=== PATIENT | female | born 1940 | race Caucasian/White ===

== ENCOUNTER 2017-04-13 06:31 | Inpatient (IN) | payer OTHER, MEDICAID ==
[~2017-04-13] VITALS: Ht 157.5 cm; Wt 73.8 kg
[2017-04-13 08:17] LABS: Basophils # (auto) 0 uL; Basophils % (auto) 0.2 % (0.0-2.0); Eosinophils # (auto) 0 uL; Hematocrit 41.7 % (36.0-46.0); Hemoglobin 14.2 g/dL (12.2-16.2); Lymphocytes # (auto) 0.5 uL; Mean Corpuscular Hemoglobin 31.9 pg (28.0-32.0); Mean Corpuscular Hgb Conc. 33.9 g/dL (32.0-36.0); Monocytes # (auto) 0.7 uL; Monocytes % (auto) 6.6 % (0.0-12.0); Neutrophils # (auto) 9.7 uL; Neutrophils % (auto) 88.2 % (37.0-80.0); Platelet Count (auto) 184 10^3/uL (140-450); Red Blood Cells 4.44 10^6/uL (4.0-5.20); Red Cell Distribution Width 12.9 % (11.8-14.3)
[2017-04-13 08:45] LABS: Albumin 2.5 g/dL (3.4-5.0); Bilirubin, Total 0.6 mg/dL (0.2-1.0); Calcium 7.7 mg/dL (8.5-10.1); Magnesium 1.7 mg/dL (1.6-2.6); Total Protein 5.9 g/dL (6.4-8.2)
[2017-04-13 08:57] LABS: Potassium 2.6 mmol/L (3.5-5.1)
[2017-04-13] MEDS ORDERED: cefTRIAXone 1GM/10ml IVPUSH 10 ML IV ONE (10:00)
[2017-04-13] MEDS ORDERED: ACETAMINOPHEN 325 MG TAB PO ONE (10:00)
[2017-04-13] MEDS ORDERED: ENOXAPARIN SOD 80 MG/0.8ML SYRINGE SC ONE (10:00)
[2017-04-13] MEDS ORDERED: FUROSEMIDE 40 MG/4 ML VIAL IV ONE (10:00)
[2017-04-13] MEDS ORDERED: TEMAZEPAM 15 MG CAP PO PRN (10:30)
[2017-04-13] MEDS ORDERED: MORPHINE SULF INJ 2 MG/ML SYRINGE 1ML IV PRN ×2 (10:30)
[2017-04-13] MEDS ORDERED: DEXTROSE (50%) 50ML SYRG IV PRN (10:30)
[2017-04-13] MEDS ORDERED: LORazepam 0.5 MG TAB PO PRN (10:30)
[2017-04-13] MEDS ORDERED: NITROGLYCERIN 0.4 MG SL TAB SL PRN (10:30)
[2017-04-13] MEDS ORDERED: LACTULOSE 20Gm/30ML SOLN PO PRN (10:30)
[2017-04-13 11:10] LABS: Urine Bacteria NONE SEEN /hpf (None Seen); Urine Blood 1+ /uL (Negative); Urine Specific Gravity 1.014 (1.001-1.035); Urine WBC 1 /hpf (0 - 5)
[2017-04-13 11:11] LABS: INR 1.03 (0.9-1.15); Partial Thromboplastin Time 26.7 sec (22.64-33.71); Prothrombin Time 11.2 sec (9.37-12.3)
[2017-04-13] MEDS: POTASSIUM CHL 20MEQ/50ML 50 ML IV SCH ×3 (11:12→15:01)
[2017-04-13 11:13] LABS: Alcohol, Urine < 3.0 mg/dL (0-5); Amphetamine Screen, Urine NEGATIVE (NEGATIVE); Barbiturate Scree,Urine NEGATIVE (NEGATIVE); Benzodiazephine Screen, Urine NEGATIVE (NEGATIVE); Cannabinoid Screen, Urine NEGATIVE (NEGATIVE); Cocaine Screen, Urine NEGATIVE (NEGATIVE); Opiate Scree,Urine NEGATIVE (NEGATIVE); Phencyclidine Screen, Urine NEGATIVE (NEGATIVE)
[2017-04-13] MEDS: ASPirin 81 mg TAB PO SCH (11:15)
[2017-04-13] MEDS: CARVEDILOL 3.125 MG TAB PO SCH ×2 (11:15→22:45)
[2017-04-13] MEDS: ENALAPRIL MALEATE 2.5 MG TAB PO SCH (11:16)
[2017-04-13] MEDS: NITROGLYCERIN 0.2MG/HR TOPICAL PATCH TD SCH (11:16)
[2017-04-13] MEDS: PANTOPRAZOLE 40 MG TAB PO SCH (11:26)
[2017-04-13 13:04] LABS: Folate (Folic Acid) 23.01 ng/mL (5.38-24)
[2017-04-13] MEDS: ACCU-CHEK COMFORT CURVE STRIP VI SCH ×2 (13:39→19:02)
[2017-04-13] MEDS: SODIUM CHLOR 0.9% PF (SALINE LOCK) 10ML VIAL IV SCH ×2 (14:01→22:00)
[2017-04-13] MEDS ORDERED: IOHEXOL 350 MG/ML 100ML IJ ONE (16:48)
[2017-04-13] MEDS ORDERED: SODIUM CHLORIDE 0.9% 1,000 ML IV SCH (17:15)
[2017-04-13] MEDS: HYDROcodone-ACET 5/325MG TAB PO PRN (17:39)
[2017-04-13] MEDS: ACETAMINOPHEN 500 MG TAB PO PRN (19:44)
[2017-04-13] MEDS ORDERED: THROAT LOZENGES(CEPASTAT) MT PRN (19:45)
[2017-04-13] MEDS ORDERED: ALBUTEROL SULF 2.5 MG/0.5ML(0.5%) NEB SOLN NEB PRN (21:00)
[2017-04-13] MEDS ORDERED: VANCOMYCIN PER PHARMACY 0 MG IV SCH (21:00)
[2017-04-13] MEDS ORDERED: PIPERACILLIN-TAZOB 3.375GM 50 ML IV ONE (21:00)
[2017-04-13] MEDS ORDERED: POTASSIUM CHL 20MEQ/50ML 50 ML IV SCH (21:00)
[2017-04-13] MEDS ORDERED: AZITHROMYCIN 500MG/ 250ML 250 ML IV ONE (21:00)
[2017-04-13] MEDS ORDERED: POTASSIUM CHL 20 Meq TABLET PO ONE (21:00)
[2017-04-13] MEDS ORDERED: SOD CHL 0.9%/ KCL 40MEQ 1,000 ML IV SCH (21:00)
[2017-04-13] MEDS ORDERED: VANCOMYCIN 1GM/250ML 250 ML IV ONE (21:00)
[2017-04-13] MEDS ORDERED: OSELTAMIVIR 75 MG CAP PO ONE (21:00)
[2017-04-13] MEDS ORDERED: ETOMIDATE (2MG/ML) 20ML VIAL IV ONE ×2 (21:17→21:45)
[2017-04-13] MEDS: ATORVASTATIN 20 MG TAB PO SCH (22:45)
[2017-04-13] MEDS: ENOXAPARIN SOD 80 MG/0.8ML SYRINGE SC SCH (22:46)
[2017-04-14] MEDS: ALBUTEROL SULF 2.5 MG/0.5ML(0.5%) NEB SOLN NEB SCH ×4 (01:00→18:46)
[2017-04-14] MEDS: IPRATROPIUM BROM 0.5 MG/2.5ML INH SOL NEB SCH ×4 (01:00→18:46)
[2017-04-14 01:17] LABS: Albumin 2.3 g/dL (3.4-5.0); BUN/Creatinine Ratio 11.6; Calcium 7.5 mg/dL (8.5-10.1); Potassium 3.5 mmol/L (3.5-5.1)
[2017-04-14 01:20] LABS: Bilirubin, Total 0.8 mg/dL (0.2-1.0); Total Protein 5.9 g/dL (6.4-8.2)
[2017-04-14] MEDS ORDERED: IBUPROFEN 400 MG TAB PO ONE ×2 (01:45→02:05)
[2017-04-14] MEDS: PIPERACILLIN-TAZOB 3.375GM 50 ML IV SCH ×2 (01:47→06:47)
[2017-04-14] MEDS: PROMETHAZINE HCL 25 MG/ML 1ML IV PRN (01:56)
[2017-04-14] MEDS: ACETAMINOPHEN 500 MG TAB PO PRN (02:21)
[2017-04-14 04:25] VITALS: BP 147/73
[2017-04-14 05:29] LABS: Hematocrit 36.9 % (36.0-46.0); Hemoglobin 12.6 g/dL (12.2-16.2); Mean Corpuscular Hemoglobin 32.5 pg (28.0-32.0); Mean Corpuscular Hgb Conc. 34.1 g/dL (32.0-36.0); Mean Corpuscular Volume 95.3 fL (80.0-100.0); Platelet Count (auto) 150 10^3/uL (140-450); Red Blood Cells 3.87 10^6/uL (4.0-5.20); Red Cell Distribution Width 13.5 % (11.8-14.3); White Blood Cell 11.4 10^3/uL (4.4-10.8)
[2017-04-14 05:55] LABS: Albumin 2.1 g/dL (3.4-5.0); BUN/Creatinine Ratio 14.3; Bilirubin, Total 0.9 mg/dL (0.2-1.0); Calcium 7.7 mg/dL (8.5-10.1); Total Protein 5.3 g/dL (6.4-8.2)
[2017-04-14] MEDS: ACCU-CHEK COMFORT CURVE STRIP VI SCH ×4 (06:00→18:06)
[2017-04-14 06:02] LABS: Band Neutrophils % (manual) 0; Basophils % (manual) 0 (0.0-2.0); Blast Cells 0; Eosinophils % (manual) 0 (0-7); Metamyelocytes % 0; Myelocytes % 0; Promyelocytes % 0; Reactive Lymphocytes 0
[2017-04-14] MEDS: SODIUM CHLOR 0.9% PF (SALINE LOCK) 10ML VIAL IV SCH ×3 (06:39→22:06)
[2017-04-14] MEDS: methylPREDNISolone SOD SUCC 40 MG/ML VL IV SCH ×2 (06:47)
[2017-04-14] MEDS ORDERED: cefTRIAXone 1GM/10ml IVPUSH 10 ML IV SCH (09:00)
[2017-04-14] MEDS: NITROGLYCERIN 0.2MG/HR TOPICAL PATCH TD SCH (09:30)
[2017-04-14] MEDS: ASPirin 81 mg TAB PO SCH (09:30)
[2017-04-14] MEDS: CARVEDILOL 3.125 MG TAB PO SCH ×2 (09:30→22:11)
[2017-04-14] MEDS: ENALAPRIL MALEATE 2.5 MG TAB PO SCH (09:30)
[2017-04-14] MEDS: OSELTAMIVIR 75 MG CAP PO SCH ×2 (09:30→22:10)
[2017-04-14] MEDS: ENOXAPARIN SOD 80 MG/0.8ML SYRINGE SC SCH ×2 (09:30→22:10)
[2017-04-14] MEDS: PANTOPRAZOLE 40 MG TAB PO SCH (09:30)
[2017-04-14] MEDS ORDERED: AZITHROMYCIN 500MG/ 250ML 250 ML IV SCH (10:00)
[2017-04-14 10:47] LABS: Lymphocytes % (manual) 3 (10.0-50.0); Monocytes % (manual) 1 (0-12)
[2017-04-14] MEDS: LEVOFLOXACIN 500MG 100 ML IV SCH (11:47)
[2017-04-14] MEDS: MORPHINE SULFATE 4 MG/ML SYR/VIAL IV PRN ×2 (15:10→21:24)
[2017-04-14] MEDS ORDERED: VANCOMYCIN 1GM/250ML 250 ML IV SCH (17:00)
[2017-04-14] MEDS: ATORVASTATIN 20 MG TAB PO SCH (22:10)
[2017-04-15] MEDS: ACCU-CHEK COMFORT CURVE STRIP VI SCH ×4 (00:14→18:08)
[2017-04-15] MEDS ORDERED: IPRATROPIUM BROM 0.5 MG/2.5ML INH SOL NEB ONE (00:15)
[2017-04-15] MEDS ORDERED: ALBUTEROL SULF 2.5 MG/0.5ML(0.5%) NEB SOLN NEB ONE (00:15)
[2017-04-15] MEDS: IPRATROPIUM BROM 0.5 MG/2.5ML INH SOL NEB SCH ×4 (00:29→19:50)
[2017-04-15] MEDS: ALBUTEROL SULF 2.5 MG/0.5ML(0.5%) NEB SOLN NEB SCH ×4 (00:29→19:50)
[2017-04-15 05:59] LABS: Albumin 1.8 g/dL (3.4-5.0); Bilirubin, Total 0.5 mg/dL (0.2-1.0); Calcium 7.9 mg/dL (8.5-10.1)
[2017-04-15] MEDS: SODIUM CHLOR 0.9% PF (SALINE LOCK) 10ML VIAL IV SCH ×3 (06:03→20:54)
[2017-04-15] MEDS: MORPHINE SULFATE 4 MG/ML SYR/VIAL IV PRN ×3 (06:03→20:50)
[2017-04-15] MEDS: InsuLIN REG 1unit/0.01ml Soln (100units/ml) SC SCH ×4 (07:21→22:00)
[2017-04-15] MEDS: PROMETHAZINE HCL 25 MG/ML 1ML IV PRN (07:35)
[2017-04-15] MEDS: HYDROcodone-ACET 5/325MG TAB PO PRN (07:35)
[2017-04-15] MEDS: CARVEDILOL 3.125 MG TAB PO SCH ×2 (10:00→20:54)
[2017-04-15] MEDS: ENALAPRIL MALEATE 2.5 MG TAB PO SCH (10:00)
[2017-04-15] MEDS: NITROGLYCERIN 0.2MG/HR TOPICAL PATCH TD SCH (10:00)
[2017-04-15 10:08] VITALS: BP 108/56
[2017-04-15] MEDS: LEVOFLOXACIN 500MG 100 ML IV SCH (10:36)
[2017-04-15] MEDS: PANTOPRAZOLE 40 MG TAB PO SCH (10:37)
[2017-04-15] MEDS: OSELTAMIVIR 75 MG CAP PO SCH ×2 (10:37→20:59)
[2017-04-15] MEDS: ENOXAPARIN SOD 80 MG/0.8ML SYRINGE SC SCH (10:38)
[2017-04-15] MEDS: ASPirin 81 mg TAB PO SCH (10:40)
[2017-04-15 13:00] VITALS: BP 99/45
[2017-04-15 16:40] VITALS: BP 107/53
[2017-04-15] MEDS ORDERED: IPRIH IN (19:45)
[2017-04-15] MEDS ORDERED: RISP0.5T45 PO (19:47)
[2017-04-15] MEDS ORDERED: TRAZ50TA2 PO (19:48)
[2017-04-15] MEDS ORDERED: FURO20TA3 PO (19:49)
[2017-04-15] MEDS ORDERED: FLUO-125 PO (19:49)
[2017-04-15] MEDS ORDERED: DONE10TA40 PO (19:50)
[2017-04-15] MEDS ORDERED: OME20T PO (19:51)
[2017-04-15] MEDS ORDERED: OXYB15TA12 PO (19:52)
[2017-04-15] MEDS ORDERED: ATO40T PO (19:52)
[2017-04-15] MEDS ORDERED: LISI10TA6 PO (19:54)
[2017-04-15] MEDS ORDERED: METO25TA5 PO (19:55)
[2017-04-15] MEDS ORDERED: ASCO-22 PO (19:56)
[2017-04-15] MEDS ORDERED: ASPI325T4 PO (19:57)
[2017-04-15] MEDS ORDERED: CYAN250L PO (19:59)
[2017-04-15] MEDS ORDERED: ROPI1TAB22 PO (20:02)
[2017-04-15] MEDS: ATORVASTATIN 20 MG TAB PO SCH (20:53)
[2017-04-15 22:00] VITALS: BP 94/51
[2017-04-16] VITALS (7 sets, daily range): BP systolic 89–111; BP diastolic 49–67
[2017-04-16] MEDS: IPRATROPIUM BROM 0.5 MG/2.5ML INH SOL NEB SCH ×5 (00:12→22:24)
[2017-04-16] MEDS: ALBUTEROL SULF 2.5 MG/0.5ML(0.5%) NEB SOLN NEB SCH ×4 (00:12→18:10)
[2017-04-16] MEDS: MORPHINE SULFATE 4 MG/ML SYR/VIAL IV PRN (05:33)
[2017-04-16] MEDS: SODIUM CHLOR 0.9% PF (SALINE LOCK) 10ML VIAL IV SCH ×3 (05:38→22:22)
[2017-04-16] MEDS: InsuLIN REG 1unit/0.01ml Soln (100units/ml) SC SCH ×4 (05:38→22:32)
[2017-04-16] MEDS: ACCU-CHEK COMFORT CURVE STRIP VI SCH ×5 (06:25→22:32)
[2017-04-16] MEDS: OSELTAMIVIR 75 MG CAP PO SCH (10:00)
[2017-04-16] MEDS: CARVEDILOL 3.125 MG TAB PO SCH ×2 (10:00→22:23)
[2017-04-16] MEDS: NITROGLYCERIN 0.2MG/HR TOPICAL PATCH TD SCH (10:00)
[2017-04-16] MEDS: PANTOPRAZOLE 40 MG TAB PO SCH (10:01)
[2017-04-16] MEDS: ENALAPRIL MALEATE 2.5 MG TAB PO SCH (10:02)
[2017-04-16] MEDS: ASPirin 81 mg TAB PO SCH (10:03)
[2017-04-16] MEDS: LEVOFLOXACIN 500MG 100 ML IV SCH (10:03)
[2017-04-16] MEDS: HYDROcodone-ACET 5/325MG TAB PO PRN ×2 (12:14→20:01)
[2017-04-16] MEDS: ATORVASTATIN 20 MG TAB PO SCH (22:22)
[2017-04-17] MEDS: IPRATROPIUM BROM 0.5 MG/2.5ML INH SOL NEB SCH ×2 (00:27→11:18)
[2017-04-17] MEDS: ALBUTEROL SULF 2.5 MG/0.5ML(0.5%) NEB SOLN NEB SCH ×3 (00:28→11:18)
[2017-04-17] MEDS: MORPHINE SULFATE 4 MG/ML SYR/VIAL IV PRN (02:06)
[2017-04-17 05:16] VITALS: BP 93/54
[2017-04-17] MEDS: InsuLIN REG 1unit/0.01ml Soln (100units/ml) SC SCH ×3 (06:24→17:00)
[2017-04-17] MEDS: ACCU-CHEK COMFORT CURVE STRIP VI SCH ×2 (06:24→12:00)
[2017-04-17] MEDS: SODIUM CHLOR 0.9% PF (SALINE LOCK) 10ML VIAL IV SCH ×2 (06:24→14:00)
[2017-04-17 08:00] VITALS: BP 115/49
[2017-04-17] MEDS: HYDROcodone-ACET 5/325MG TAB PO PRN (08:24)
[2017-04-17 09:00] VITALS: BP 115/49
[2017-04-17] MEDS: PANTOPRAZOLE 40 MG TAB PO SCH (10:18)
[2017-04-17] MEDS: ASPirin 81 mg TAB PO SCH (10:18)
[2017-04-17] MEDS: CARVEDILOL 3.125 MG TAB PO SCH (10:19)
[2017-04-17] MEDS ORDERED: ALB5IS NEB (12:00)
[2017-04-17] MEDS ORDERED: PRED1PAK10 PO (12:00)
[2017-04-17] MEDS ORDERED: IPR002IS NEB (12:00)
[2017-04-17] MEDS ORDERED: DOXY-216 PO (12:00)
[2017-04-17 13:00] VITALS: BP 93/45
[2017-04-17 14:45] VITALS: BP 93/49
== END 2017-04-17 18:30 | disposition home health service (06) | DRG 871 ==
LOC: ER 06:31 → EDBD 06:31 → TELE 06:32 → TELE-WESTW 04-15 10:09
PROVIDERS: ADMIT Internal Medicine; ATTEND Internal Medicine
PROC: 0PSDXZZ Reposition Left Humeral Head, External Approach (ICD-10-PCS; principal; 2017-04-13)
DX: A41.9 Sepsis, unspecified organism (principal); J96.01 Acute respiratory failure with hypoxia; I21.4 Non-ST elevation (NSTEMI) myocardial infarction; G93.41 Metabolic encephalopathy; J18.1 Lobar pneumonia, unspecified organism; I50.9 Heart failure, unspecified; F03.90 Unspecified dementia, unspecified severity, without behavioral disturbance, psychotic disturbance, mood disturbance, and anxiety; J44.0 Chronic obstructive pulmonary disease with (acute) lower respiratory infection; I67.2 Cerebral atherosclerosis; Z66 Do not resuscitate; S43.014A Anterior dislocation of right humerus, initial encounter; W06.XXXA Fall from bed, initial encounter; E87.6 Hypokalemia; R73.9 Hyperglycemia, unspecified; F17.210 Nicotine dependence, cigarettes, uncomplicated; K57.90 Diverticulosis of intestine, part unspecified, without perforation or abscess without bleeding; Z90.49 Acquired absence of other specified parts of digestive tract; Z79.899 Other long term (current) drug therapy; Z86.73 Personal history of transient ischemic attack (TIA), and cerebral infarction without residual deficits; Z87.820 Personal history of traumatic brain injury; Z79.82 Long term (current) use of aspirin
CPT/HCPCS: 23650; 36415; 36600; 51702; 70450; 70551; 71010; 71111; 71275; 73020; 73030; 74176; 80053; 80061; 80307; 81001; 82550; 82607; 82746; 82805; 82962; 83036; 83605; 83735; 83880; 84443; 84484; 85007; 85025; 85027; 85379; 85610; 85652; 85730; 86141; 87040; 87081; 87086; 87400; 93005; 93306; 93886; 93970; 94640; 95819; 96372; 97116; 97163; 97530; J1815; J1956; J2543